=== PATIENT | female | born 1990 | race Caucasian/White ===

== ENCOUNTER 2016-08-12 16:58 | Inpatient (IN) | payer MEDICAID ==
[~2016-08-12] VITALS: Ht 157.5 cm; Wt 69.5 kg
[~2016-08-12 16:58] MED LIST: PREN1TAB62 PO
[2016-08-12] MEDS ORDERED: BUTORPHANOL 2 MG INJ IV PRN (19:00)
[2016-08-12] MEDS ORDERED: ACETAMINOPHEN/CODEINE #3 TAB PO PRN (19:00)
[2016-08-12] MEDS ORDERED: CARBOPROST 250 MCG INJ IM PRN (19:00)
[2016-08-12] MEDS ORDERED: MISOPROSTOL 200 MCG TAB PR PRN (19:00)
[2016-08-12] MEDS ORDERED: OXYTOCIN 30 UNITS/LR 500 ML IV SCH ×2 (19:00)
[2016-08-12] MEDS ORDERED: LIDOCAINE 1% (MPF) 30 ML INJ INJ PRN (19:00)
[2016-08-12] MEDS ORDERED: OXYTOCIN 30 UNITS/LR 500 ML IV PRN (19:00)
[2016-08-12] MEDS ORDERED: METHYLERGONOVINE 0.2 MG INJ IM PRN (19:00)
[2016-08-12] MEDS ORDERED: IBUPROFEN 600 MG TAB PO PRN (19:00)
--- NOTE | 2016-08-12 20:46 | RADRPT ---
PROCEDURE: US OB. CLINICAL INDICATION: Labor. TECHNIQUE: Multiple sonographic images of the pelvis were obtained. Transabdominal imaging only w as performed. The images were reviewed on a PACS workstation. COMPARISON: 08/05/2016. FINDINGS: There is a single viable intrauterine gestation. Cardiac activity is present with 146 beats per min jayde. There is a vertex presentation. Measurements were made in order to determine age. The results are as follows: BPD = 9.38 cm HC = 34.46 cm AC = 35.11 cm FL = 7.74 cm Estimated gestational age of approximately 39 weeks and 1 day. The estimated date of delivery is 08/18/2016. The EFW = 3693 g, 60 3%. The placenta is posterior, grade 2. There is a normal amount of amniotic fluid with an HARSH = 15.5 cm. There are no adnexal masses. IMPRESSION: 1. Single viable intrauterine gestation of approximately 39 weeks and 1 day. 2. The estimated date of delivery is 08/18/2016. RPTAT: HH .Hosea Malhotra MD, MD Date Time Electronically viewed and signed by .Hosea Malhotra MD, MD on 08/12/2016 20:46 .N/
[2016-08-12] MEDS: LACTATED RINGER'S 1,000 ML IV SCH (20:52)
[2016-08-12 21:12] VITALS: Ht 157.5 cm; Wt 69.5 kg
[2016-08-12] MEDS: OXYTOCIN 30 UNITS/LR 500 ML IV SCH (21:16)
[2016-08-12 21:32] LABS: BASOPHILS % 0.4 % (0.0-2.0); EOSINOPHILS # 0.1 10^3/ul (0.0-0.5); EOSINOPHILS % 0.6 % (0.0-7.0); HEMATOCRIT 39.3 % (37.0-47.0); HEMOGLOBIN 13.3 g/dl (12.0-16.0); LYMPHOCYTES # 1.3 10^3/ul (0.8-2.9); LYMPHOCYTES % 13.1 % (15.0-51.0); MEAN CORPUSCULAR HEMOGLOBIN 30.8 pg (29.0-33.0); MEAN CORPUSCULAR HGB CONC 33.9 g/dl (32.0-37.0); MEAN CORPUSCULAR VOLUME 90.7 fl (82.0-101.0); MEAN PLATELET VOLUME 9.6 fl (7.4-10.4); MONOCYTE # 0.7 10^3/ul (0.3-0.9); MONOCYTES % 7.2 % (0.0-11.0); NEUTROPHIL # 7.7 10^3/ul (1.6-7.5); NEUTROPHILS % 78.7 % (39.0-77.0); PLATELET COUNT 169 10^3/UL (140-440); RED BLOOD COUNT 4.34 10^6/ul (4.20-5.40); RED CELL DISTRIBUTION WIDTH 13.5 % (11.5-14.5); UNCORRECTED WBC 9.8 10^3/ul (4.8-10.8); WHITE BLOOD COUNT 9.8 10^3/ul (4.8-10.8)
[2016-08-12 21:37] LABS: CONDITION 1
[2016-08-12 21:42] LABS: INR 0.91; PROTIME 12.3 Sec (12.2-14.2)
[2016-08-12 21:43] LABS: PARTIAL THROMBOPLASTIN TIME 26.2 Sec (25.0-35.0)
[2016-08-12] MEDS ORDERED: LACTATED RINGER'S 1,000 ML IV PRN (22:00)
[2016-08-13] MEDS: LACTATED RINGER'S 1,000 ML IV SCH ×3 (01:13→15:43)
[2016-08-13] MEDS ORDERED: AMPICILLIN 2 GM/NS (PMX) 100 ML IV ONE (20:00)
[2016-08-13] MEDS: AMPICILLIN 1 GM/NS (PMX) 50 ML IV SCH (23:18)
[2016-08-13] MEDS: OXYTOCIN 30 UNITS/LR 500 ML IV SCH (23:19)
[2016-08-14] MEDS: AMPICILLIN 1 GM/NS (PMX) 50 ML IV SCH ×4 (03:35→16:02)
[2016-08-14] MEDS: LACTATED RINGER'S 1,000 ML IV SCH ×3 (03:35→16:22)
[2016-08-14] MEDS ORDERED: FENTAnyl 2MCG/ML-ROPIV 0.2% 100 ML ONE (08:12)
[2016-08-14] MEDS ORDERED: DIPHENHYDRAMINE 50 MG INJ IV PRN (08:30)
[2016-08-14] MEDS ORDERED: FENTAnyl 2MCG/ML-ROPIV 0.2% 100 ML BAG EPI SCH (08:30)
[2016-08-14] MEDS ORDERED: HYDROmorphONE 1 MG/ML SYG IV PRN ×2 (08:30)
[2016-08-14] MEDS ORDERED: NALOXONE (0.4 MG/ML) INJ IV PRN (08:30)
[2016-08-14] MEDS ORDERED: KETOROLAC 30 MG INJ IV PRN (08:30)
[2016-08-14] MEDS ORDERED: ONDANSETRON 4 MG INJ IV PRN (08:30)
--- NOTE | 2016-08-14 19:43 | LDN ---
Date/Time of Note Date/Time of Note DATE: 08/14/16 TIME: 19:41 Delivery Summary Midline episiotomy Placenta Delivered: Spontaneously Meconium: none Perineum intact?: No Anesthesia type: Epidural Estimated blood loss: 200 Sponge & Needle done & correct: Yes All needle counts correct: Yes Any foreign bodies felt in the: No Problems: Infant Delivery Information Sex Infant Sex: female Apgars 1 Minute: 9 5 Minute: 9 Suctioning Nose & mouth suctioned at jenna: Yes Delee suction performed: Yes Umbilical Cord Umbilical cord with: 3 Vessels Cord presentations: no nuchal cord Cord Blood was obtained: Yes Mother & Baby Disposition Disposition Mom & Baby to Maternity; Good: Yes Baby to NICU: No KAIN MATA M.D. Aug 14, 2016 19:42
[2016-08-14 20:20] VITALS: BP 126/70; PULSE 72; RESP 18
[2016-08-14] MEDS ORDERED: BENZOCAINE 20% 56 ML SPRAY TOP PRN (20:30)
[2016-08-14] MEDS ORDERED: METHYLERGONOVINE 0.2 MG INJ IM PRN (20:30)
[2016-08-14] MEDS ORDERED: ZOLPIDEM 5 MG TAB PO PRN (20:30)
[2016-08-14] MEDS ORDERED: OXYTOCIN 30 UNITS/LR 500 ML IV PRN (20:30)
[2016-08-14] MEDS ORDERED: MISOPROSTOL 200 MCG TAB PR PRN (20:30)
[2016-08-14] MEDS ORDERED: CARBOPROST 250 MCG INJ IM PRN (20:30)
[2016-08-14] MEDS ORDERED: WITCH HAZEL/GLYCERIN PAD PR PRN (20:30)
[2016-08-14] MEDS ORDERED: SENNA/DOCUSATE NA (8.6MG/50MG) TAB PO PRN (20:30)
[2016-08-14] MEDS ORDERED: OXYCODONE/ASPIRIN (4.88/325) TAB PO PRN (20:30)
[2016-08-14] MEDS: SENNA/DOCUSATE NA (8.6MG/50MG) TAB PO SCH (21:57)
[2016-08-14] MEDS: LANOLIN 7 GM TUBE TOP PRN (21:58)
[2016-08-14] MEDS: LACTATED RINGER'S 1,000 ML IV* SCH (22:01)
[2016-08-15] VITALS: BP 120/69; PULSE 75; RESP 18
[2016-08-15] MEDS: IBUPROFEN 600 MG TAB PO SCH ×5 (00:19→23:11)
[2016-08-15 04:00] VITALS: BP 96/55; PULSE 62; RESP 17
[2016-08-15] MEDS: LACTATED RINGER'S 1,000 ML IV* SCH ×3 (04:11→19:37)
[2016-08-15 07:03] LABS: EOSINOPHILS # 0.1 10^3/ul (0.0-0.5); EOSINOPHILS % 0.5 % (0.0-7.0); HEMATOCRIT 33.2 % (37.0-47.0); HEMOGLOBIN 11.5 g/dl (12.0-16.0); LYMPHOCYTES # 1.3 10^3/ul (0.8-2.9); LYMPHOCYTES % 10.8 % (15.0-51.0); MEAN CORPUSCULAR HEMOGLOBIN 31.6 pg (29.0-33.0); MEAN CORPUSCULAR HGB CONC 34.7 g/dl (32.0-37.0); MEAN PLATELET VOLUME 9.1 fl (7.4-10.4); MONOCYTE # 0.8 10^3/ul (0.3-0.9); NEUTROPHIL # 9.8 10^3/ul (1.6-7.5); NEUTROPHILS % 81.7 % (39.0-77.0); PLATELET COUNT 136 10^3/UL (140-440); RED BLOOD COUNT 3.64 10^6/ul (4.20-5.40); RED CELL DISTRIBUTION WIDTH 13.6 % (11.5-14.5); UNCORRECTED WBC 12.1 10^3/ul (4.8-10.8); WHITE BLOOD COUNT 12.1 10^3/ul (4.8-10.8)
[2016-08-15 07:05] LABS: CONDITION 1
[2016-08-15 08:00] VITALS: BP 104/59; PULSE 69; RESP 20
[2016-08-15] MEDS: MULTIVIT/MIN/FOLATE/IRON/PREN TAB PO SCH (09:08)
[2016-08-15] MEDS: SENNA/DOCUSATE NA (8.6MG/50MG) TAB PO SCH ×2 (09:08→21:43)
[2016-08-15] MEDS ORDERED: INFLUENZA VIRUS VACCINE 0.5 ML SYG IM* ONE (10:00)
[2016-08-15 15:11] VITALS: BP 103/55; PULSE 80; RESP 20
--- NOTE | 2016-08-15 15:35 | PN ---
Date/Time of Note Date/Time of Note DATE: 08/15/16 TIME: 15:34 OB Subjective Subjective Subjective PPD#1 is stable afebrile tolerated diet No VB +BM +voids VS stable Gen NAD Abd soft NT ND Genitalia No blood at perinium --->Discharge plan tomorrow KAIN MATA M.D. Aug 15, 2016 15:35
[2016-08-15 19:45] VITALS: BP 112/74; PULSE 86; RESP 18
[2016-08-16 04:00] VITALS: BP 108/62; PULSE 67; RESP 17
[2016-08-16] MEDS: LACTATED RINGER'S 1,000 ML IV* SCH (04:11)
[2016-08-16] MEDS: IBUPROFEN 600 MG TAB PO SCH ×3 (05:59→17:33)
[2016-08-16 07:36] VITALS: BP 99/49; PULSE 59; RESP 20
[2016-08-16] MEDS: MULTIVIT/MIN/FOLATE/IRON/PREN TAB PO SCH (08:43)
[2016-08-16] MEDS: SENNA/DOCUSATE NA (8.6MG/50MG) TAB PO SCH (08:43)
[2016-08-16] MEDS ORDERED: DIPHTH/TET/ACEL PERTUSS (ADULT) 0.5 ML VIAL IM* ONE (09:00)
[2016-08-16 16:10] VITALS: BP 111/65; PULSE 72; RESP 20
[2016-08-16] MEDS: LANOLIN 7 GM TUBE TOP PRN (16:19)
[2016-08-17] MEDS ORDERED: INFLUENZA VIRUS VACCINE 0.5 ML SYG IM* ONE (09:00)
== END 2016-08-16 18:57 | disposition home or self-care (01) | DRG 775 ==
LOC: L-D 16:58 → PP1 08-14 20:23 → EDSTATUS 08-15 16:57
PROVIDERS: ADMIT Obstetrics & Gynecology; ATTEND Obstetrics & Gynecology
PROC: 10E0XZZ Delivery of Products of Conception, External Approach (ICD-10-PCS; principal; 2016-08-14)
DX: O80 Encounter for full-term uncomplicated delivery (principal); Z37.0 Single live birth; Z3A.37 37 weeks gestation of pregnancy
CPT/HCPCS: 62319; 76815; 85025; 85610; 85730; 86592; 86900; 86901; 87340; 90686; 90715; J0290; J2210; J2590; J3010; J7120

== ENCOUNTER 2019-03-29 18:58 | Inpatient (IN) | payer MEDICAID ==
[~2019-03-29] VITALS: Ht 152.6 cm; Wt 68.2 kg
[~2019-03-29 18:58] MED LIST changes: +ACET-141 PO; +HYDR-4011 PO; +IBUP100O28 PO; +NORG1TAB34 PO
[2019-03-29] MEDS ORDERED: ACETAMINOPHEN 325 MG TAB PO ONE (20:30)
[2019-03-29] MEDS ORDERED: SOD CHLORIDE 0.9% 1,000 ML IV ONE (22:00)
[2019-03-30] VITALS (19 sets, daily range): BP systolic 11–112; BP diastolic 52–84; PULSE 65–92; RESP 13–20; Ht 152.6 cm; Wt 68.2 kg
[2019-03-30] MEDS ORDERED: LACTATED RINGER'S 1,000 ML IV SCH (00:50)
[2019-03-30] MEDS ORDERED: morphine 4 MG/ML VIAL IV PRN (07:00)
[2019-03-30] MEDS: LACTATED RINGER'S 1,000 ML IV SCH ×2 (08:59→10:37)
[2019-03-30] MEDS ORDERED: CEFAZOLIN 2 GM/50 ML (PMX) 50 ML IVPB ONE (09:00)
[2019-03-30] MEDS ORDERED: PROPOFOL 20 ML ONE (13:14)
[2019-03-30] MEDS ORDERED: CEFAZOLIN 1 GM INJ ONE (13:14)
[2019-03-30] MEDS ORDERED: ROCURONIUM 50 MG INJ ONE (13:14)
[2019-03-30] MEDS ORDERED: FENTAnyl 50 MCG/ML VIAL ONE (13:14)
[2019-03-30] MEDS ORDERED: MIDAZOLAM 1 MG/ML 2 ML INJ ONE (13:14)
[2019-03-30] MEDS ORDERED: ROPIVACAINE 0.2% 20 ML VIAL ONE (13:14)
[2019-03-30] MEDS ORDERED: BUPIVACAINE 0.25%/EPI (SDV) 10 ML INJ ONE (13:48)
[2019-03-30] MEDS ORDERED: BUPIVACAINE 0.5%/EPI (SDV) 30 ML INJ ONE (13:48)
[2019-03-30] MEDS ORDERED: DEXAMETHASONE 4 MG/ML 5 ML INJ ONE (14:06)
[2019-03-30] MEDS ORDERED: ONDANSETRON 4 MG INJ ONE (14:06)
[2019-03-30] MEDS ORDERED: METOCLOPRAMIDE 10 MG INJ ONE (14:06)
[2019-03-30] MEDS ORDERED: KETOROLAC 30 MG INJ ONE (14:06)
[2019-03-30] MEDS ORDERED: METOCLOPRAMIDE 10 MG INJ IV PRN ×2 (14:30→17:00)
[2019-03-30] MEDS ORDERED: hydrALAzine 20 MG INJ IV PRN (14:30)
[2019-03-30] MEDS ORDERED: ONDANSETRON 4 MG INJ IV PRN (14:30)
[2019-03-30] MEDS ORDERED: NEOSTIGMINE 3 MG/3 ML SYRINGE ONE (14:30)
[2019-03-30] MEDS ORDERED: LABETALOL HCL 20MG INJ IV PRN (14:30)
[2019-03-30] MEDS ORDERED: GLYCOPYRROLATE 0.4 MG INJ ONE (14:30)
[2019-03-30] MEDS ORDERED: HYDROmorphONE 1 MG/5 ML IV SYRINGE IV PRN ×3 (14:30)
[2019-03-30] MEDS ORDERED: FENTAnyl 50 MCG/ML VIAL IV PRN ×3 (14:30)
[2019-03-30] MEDS ORDERED: HYDROCODONE/APAP (5/325) TAB PO PRN (17:00)
[2019-03-31 02:15] VITALS: BP 101/57; PULSE 62; RESP 16
[2019-03-31 07:32] VITALS: BP 100/61; PULSE 77; RESP 18
[2019-03-31 13:46] VITALS: BP 105/59; PULSE 74; RESP 18
[2019-03-31 20:27] VITALS: BP 112/64; PULSE 83; RESP 18
[2019-04-01 01:52] VITALS: BP 97/55; PULSE 71; RESP 18
[2019-04-01 07:58] VITALS: BP 103/59; PULSE 69; RESP 17
[2019-04-01] MEDS ORDERED: METHOTREXATE 50 MG INJ IM ONE ×2 (12:30→14:00)
[2019-04-01 15:00] VITALS: BP 106/60; PULSE 68; RESP 18
[2019-04-01 20:00] VITALS: BP 101/60; PULSE 66; RESP 18
[2019-04-02 02:00] VITALS: BP 100/60; PULSE 69; RESP 17
[2019-04-02 07:58] VITALS: BP 108/58; PULSE 69; RESP 16
[2019-04-02 14:20] VITALS: BP 106/55; PULSE 77; RESP 18
== END 2019-04-02 16:35 | disposition home or self-care (01) | DRG 817 ==
LOC: FTE 18:58 → MS3 03-30 00:12
PROVIDERS: ADMIT Obstetrics & Gynecology Obstetrics; ATTEND Obstetrics & Gynecology Obstetrics
PROC: 10T24ZZ Resection of Products of Conception, Ectopic, Percutaneous Endoscopic Approach (ICD-10-PCS; principal; 2019-03-30 11:30)
DX: O00.101 Right tubal pregnancy without intrauterine pregnancy (principal); K66.1 Hemoperitoneum
CPT/HCPCS: 36415; 76801; 76817; 80048; 80076; 81001; 84702; 85014; 85018; 85025; 86850; 86900; 86901; 88305; J0690; J1100; J1885; J2250; J2270; J2405; J2710; J2765; J2795; J3010; J7030; J7120; J9260

== ENCOUNTER 2019-04-03 18:47 | Inpatient (IN) | payer MEDICAID ==
[~2019-04-03] VITALS: Ht 154.9 cm; Wt 64.7 kg
[~2019-04-03 18:47] MED LIST changes: -PREN1TAB62 PO
[2019-04-03] MEDS ORDERED: ONDANSETRON 4 MG INJ IV STA (20:38)
[2019-04-03] MEDS ORDERED: morphine 4 MG/ML VIAL IV STA (20:38)
[2019-04-03] MEDS ORDERED: ACETAMINOPHEN 325 MG TAB PO PRN (23:00)
[2019-04-03] MEDS ORDERED: SOD CHLORIDE 0.9% 100 ML ONE (23:07)
[2019-04-03] MEDS ORDERED: IOHEXOL 300MG/ML 150 ML BTL ONE (23:07)
[2019-04-04] VITALS (26 sets, daily range): BP systolic 93–122; BP diastolic 53–82; PULSE 64–99; RESP 12–18; Ht 154.9 cm; Wt 64.7 kg
[2019-04-04] MEDS ORDERED: METHOTREXATE 50 MG INJ IM ONE ×3 (02:00→04:30)
[2019-04-04] MEDS ORDERED: morphine 4 MG/ML VIAL IV STA (02:59)
[2019-04-04] MEDS: ONDANSETRON 4 MG INJ IV PRN ×2 (03:20→17:13)
[2019-04-04] MEDS ORDERED: SOD CHLORIDE 0.9% 1,000 ML IV ONE (03:23)
[2019-04-04] MEDS ORDERED: FAMOTIDINE 20 MG INJ IV ONE (03:30)
[2019-04-04] MEDS: ACETAMINOPHEN 325 MG TAB PO PRN (06:41)
[2019-04-04] MEDS: LACTATED RINGER'S 1,000 ML IV SCH ×2 (10:05→16:30)
[2019-04-04] MEDS ORDERED: DESFLURANE 15 MIN ONE (11:30)
[2019-04-04] MEDS ORDERED: CEFAZOLIN 1 GM INJ ONE (11:30)
[2019-04-04] MEDS ORDERED: PROPOFOL 20 ML ONE (11:38)
[2019-04-04] MEDS ORDERED: LIDOCAINE 2% (SDV) 5 ML INJ ONE (11:38)
[2019-04-04] MEDS ORDERED: ROCURONIUM 50 MG INJ ONE (11:38)
[2019-04-04] MEDS ORDERED: GLYCOPYRROLATE 0.4 MG INJ ONE (11:39)
[2019-04-04] MEDS ORDERED: NEOSTIGMINE 3 MG/3 ML SYRINGE ONE (11:39)
[2019-04-04] MEDS ORDERED: DEXAMETHASONE 4 MG/ML 5 ML INJ ONE (11:39)
[2019-04-04] MEDS ORDERED: ONDANSETRON 4 MG INJ ONE (11:39)
[2019-04-04] MEDS ORDERED: FAMOTIDINE 20 MG INJ ONE (11:39)
[2019-04-04] MEDS ORDERED: HYDROmorphONE 1 MG/5 ML IV SYRINGE IV ONE (12:43)
[2019-04-04] MEDS: HYDROmorphONE 1 MG/5 ML IV SYRINGE IV PRN ×2 (12:49→13:02)
[2019-04-04] MEDS ORDERED: KETOROLAC 30 MG INJ IV PRN (13:00)
[2019-04-04] MEDS ORDERED: FENTAnyl 50 MCG/ML VIAL IV PRN ×2 (13:00)
[2019-04-04] MEDS ORDERED: HYDROmorphONE 1 MG/5 ML IV SYRINGE IV PRN ×2 (13:00)
[2019-04-04] MEDS ORDERED: MEPERIDINE 25 MG INJ IV PRN (13:00)
[2019-04-04] MEDS ORDERED: ONDANSETRON 4 MG INJ IV PRN ×2 (13:00→18:30)
[2019-04-04] MEDS ORDERED: OXYCODONE/ACETAMINOPHEN (5/325) TAB PO PRN ×2 (13:00)
[2019-04-04] MEDS: IBUPROFEN 600 MG TAB PO SCH (17:14)
[2019-04-04] MEDS ORDERED: IBUPROFEN 600 MG TAB PO SCH (18:00)
[2019-04-05] MEDS: LACTATED RINGER'S 1,000 ML IV SCH ×3 (00:14→16:30)
[2019-04-05 00:24] VITALS: BP 106/59; PULSE 89; RESP 18
[2019-04-05] MEDS: IBUPROFEN 600 MG TAB PO SCH ×4 (05:23→18:00)
[2019-04-05] MEDS: ACETAMINOPHEN 325 MG TAB PO PRN ×2 (05:28→12:57)
[2019-04-05 07:31] VITALS: BP 103/58; PULSE 75; RESP 17
[2019-04-05 14:08] VITALS: BP 95/54; PULSE 70; RESP 16
[2019-04-05 19:47] VITALS: BP 110/63; PULSE 86; RESP 18
[2019-04-06] MEDS ORDERED: ACETAMINOPHEN 500 MG TAB PO PRN
[2019-04-06] MEDS ORDERED: HYDROCODONE/APAP (5/325) TAB PO PRN
[2019-04-06] MEDS ORDERED: IBUPROFEN LIQUID (PED) 20 MG/ML CUP PO PRN
[2019-04-06] MEDS: LACTATED RINGER'S 1,000 ML IV SCH ×3 (00:30→16:30)
[2019-04-06 02:20] VITALS: BP 98/55; PULSE 81; RESP 18
[2019-04-06] MEDS: IBUPROFEN 600 MG TAB PO SCH ×4 (06:00→18:00)
[2019-04-06 07:32] VITALS: BP 102/55; PULSE 80; RESP 18
[2019-04-06 15:45] VITALS: BP 103/57; PULSE 69; RESP 18
== END 2019-04-06 18:40 | disposition home or self-care (01) | DRG 819 ==
LOC: E/R 18:47 → MS1 22:54
PROVIDERS: ADMIT Obstetrics & Gynecology; ATTEND Obstetrics & Gynecology
PROC: 10D27ZZ Extraction of Products of Conception, Ectopic, Via Natural or Artificial Opening (ICD-10-PCS; 2019-04-04)
PROC: 10T24ZZ Resection of Products of Conception, Ectopic, Percutaneous Endoscopic Approach (ICD-10-PCS; principal; 2019-04-04 11:30)
PROC: 0CJS8ZZ Inspection of Larynx, Via Natural or Artificial Opening Endoscopic (ICD-10-PCS; 2019-04-06)
DX: O00.101 Right tubal pregnancy without intrauterine pregnancy (principal); R13.10 Dysphagia, unspecified; R49.0 Dysphonia; K13.70 Unspecified lesions of oral mucosa
CPT/HCPCS: 36415; 74177; 76830; 76856; 80053; 81001; 83690; 84702; 85025; 87880; 88305; 96374; 96375; J0690; J1100; J1170; J2270; J2405; J2710; J3010; J7030; J7120; J9260; Q9967